=== PATIENT | female | born 1985 | race Caucasian/White ===

== ENCOUNTER 2023-11-13 13:40 | Emergency (ER) | payer MEDICAID ==
[~2023-11-13] VITALS: Ht 160 cm; Wt 150.0 kg
[2023-11-13 13:46] VITALS: O2SAT 99
[2023-11-13] MEDS ORDERED: ACETAMINOPHEN 325MG TABLET PO ONE (14:45)
[2023-11-13] MEDS: ACETAMINOPHEN 325MG TABLET PO NR (16:52)
[2023-11-13 18:30] VITALS: BP 108/57; PULSE 95; RESP 18; TEMP 98.1
== END 2023-11-13 18:30 | disposition home or self-care (01) ==
LOC: ER 13:40
DX: S82.62XA Displaced fracture of lateral malleolus of left fibula, initial encounter for closed fracture (principal); Z98.890 Other specified postprocedural states; W18.39XA Other fall on same level, initial encounter; Y93.89 Activity, other specified; Y92.89 Other specified places as the place of occurrence of the external cause; Y99.8 Other external cause status
CPT/HCPCS: 73610; 73630; 29515; 99284; Z7610